=== PATIENT | female | born 1945 | race Hispanic/Latino ===

== ENCOUNTER 2022-03-08 05:55 | Observation (INO) | payer MEDICARE ==
[2022-03-02 14:27] LABS: BASOPHILS % (AUTO) 0.9 % (0.0-5.0); EOSINOPHILS % (AUTO) 4.9 % (0.0-8.0); HEMATOCRIT 31.1 % (36-48); LYMPHOCYTES % (AUTO) 21.7 % (21.0-51.0); MEAN CORPUSCULAR HEMOGLOBIN 30.2 pg (27.0-33.0); MEAN CORPUSCULAR HGB CONC 30.5 g/dL (32.0-36.0); MEAN CORPUSCULAR VOLUME 98.7 fL (79-99); MONOCYTES % (AUTO) 7.1 % (3.0-13.0); PLATELET COUNT (AUTO) 307 K/uL (130-400); RED BLOOD CELL COUNT(AUTO) 3.15 MIL/uL (4.00-5.50); RED CELL DISTRIBUTION WIDTH 13.9 % (11.0-15.5); WHITE BLOOD COUNT (AUTO) 5.7 K/uL (4.8-10.8)
[2022-03-02 14:40] LABS: CREATININE 0.7 mg/dL (0.5-1.5); POTASSIUM 4.5 mmol/L (3.5-5.1)
[2022-03-02 14:41] LABS: INR 0.94 (0.85-1.15); PROTHROMBIN TIME 10.3 SEC (9.6-11.6)
[2022-03-02 14:43] LABS: PARTIAL THROMBOPLASTIN TIME 28.2 SEC (26.3-35.5)
[2022-03-02 14:46] LABS: B-TYPE NATRIURETIC PEPTIDE 300 pg/mL (0-100)
[2022-03-06 16:48] VITALS: BP 138/74
[~2022-03-08] VITALS: Ht 154.9 cm; Wt 61.7 kg
[2022-03-08] VITALS (13 sets, daily range): BP systolic 149–178; BP diastolic 66–101
[~2022-03-08 05:55] MED LIST: ASPI-556 PO; ATOR40TA71 PO; CALCIUM PO; CARB15DR OP; CHOL200026 PO; CLOP75TA14 PO; CYCL30DR OP; HYDR-4068 PO; IBAN150T21 PO; LATA7.5D OP; METO-408 PO; MIRA50TA PO
[2022-03-08] MEDS ORDERED: 0.9%NACL 1000ML 1,000 ML IV ONE (06:24)
[2022-03-08] MEDS ORDERED: HEPARIN 10,000 UNIT/10ML (1,000 UNIT/ML) VIAL ONE (07:16)
[2022-03-08] MEDS ORDERED: NITROGLYCERIN 50MG VIAL ONE (07:16)
[2022-03-08] MEDS ORDERED: FENTANYL CITRATE PF 50 MCG/1 ML 2ML VIAL ONE (07:17)
[2022-03-08] MEDS ORDERED: LIDOCAINE HCL 400MG/20ML VIAL ONE (07:17)
[2022-03-08] MEDS ORDERED: MIDAZOLAM HCL 1 MG/ML 2ML VIAL ONE (07:17)
[2022-03-08] MEDS ORDERED: IODIXANOL 320 MG/ML 100 ML VIAL ONE (07:23)
[2022-03-08] MEDS ORDERED: 0.9%NACL 1000ML 1,000 ML IV SCH ×2 (08:00→09:30)
[2022-03-08] MEDS ORDERED: IOHEXOL-350 50ML VIAL IV ONE ×2 (08:05→08:15)
[2022-03-08] MEDS ORDERED: BIVALIRUDIN 250 MG/VIAL IV ONE (08:21)
[2022-03-08] MEDS ORDERED: IOHEXOL-350 75 ML VIAL IV ONE (08:29)
[2022-03-08] MEDS ORDERED: CLOPIDOGREL 300MG TAB ONE (09:01)
[2022-03-08] MEDS ORDERED: LABETALOL 20MG SYG IV ONE (09:05)
[2022-03-08] MEDS ORDERED: METOPROLOL TARTRATE 1 MG/ML 5ML VIAL IV PRN (09:30)
[2022-03-08] MEDS ORDERED: GLUCAGON 1MG KIT 1 MG ML IM PRN (09:30)
[2022-03-08] MEDS ORDERED: DEXTROSE 50%-WATER 50 ML DISP.SYRIN IV PRN (09:30)
[2022-03-08] MEDS: HYDROCODONE/ACETAMINOPHEN 10/325 MG TAB PO PRN ×3 (11:18→20:29)
[2022-03-08] MEDS: INSULIN HUMULIN R 100 UNIT/ML 3ML SQ SCH ×3 (11:30→21:00)
[2022-03-09] MEDS: HYDROCODONE/ACETAMINOPHEN 10/325 MG TAB PO PRN ×5 (00:11→13:48)
[2022-03-09 04:15] LABS: HEMATOCRIT 29.8 % (36-48); MEAN CORPUSCULAR HEMOGLOBIN 30.5 pg (27.0-33.0); MEAN CORPUSCULAR HGB CONC 32.2 g/dL (32.0-36.0); MEAN CORPUSCULAR VOLUME 94.6 fL (79-99); RED BLOOD CELL COUNT(AUTO) 3.15 MIL/uL (4.00-5.50); RED CELL DISTRIBUTION WIDTH 13.9 % (11.0-15.5); WHITE BLOOD COUNT (AUTO) 6.6 K/uL (4.8-10.8)
[2022-03-09 04:27] LABS: CREATININE 0.7 mg/dL (0.5-1.5); POTASSIUM 3.6 mmol/L (3.5-5.1)
[2022-03-09 04:28] VITALS: BP 164/75
[2022-03-09] MEDS: INSULIN HUMULIN R 100 UNIT/ML 3ML SQ SCH ×2 (06:05→11:30)
[2022-03-09 08:00] VITALS: BP 160/89
[2022-03-09] MEDS ORDERED: ASPIRIN 81MG CHEW TAB PO SCH (09:00)
[2022-03-09] MEDS ORDERED: CLOPIDOGREL 75MG TAB PO SCH (09:00)
[2022-03-09 12:00] VITALS: BP 152/51
[2022-03-09 16:00] VITALS: BP 130/63
[2022-03-09] MEDS ORDERED: ATORVASTATIN 40 MG TABLET PO SCH (21:00)
[2022-03-09] MEDS ORDERED: METOPROLOL SUCCINATE 25 MG TAB.SR.24H PO SCH (21:00)
== END 2022-03-09 18:50 | disposition home or self-care (01) ==
LOC: DAH 05:55 → DAHIP 05:56 → INTOOBSV 05:56 → OBSVTOIN 05:56 → 2DH 10:10
PROVIDERS: ADMIT Internal Medicine Cardiovascular Disease; ATTEND Internal Medicine Cardiovascular Disease
DX: I25.110 Atherosclerotic heart disease of native coronary artery with unstable angina pectoris (principal); D64.9 Anemia, unspecified; E11.9 Type 2 diabetes mellitus without complications; E78.5 Hyperlipidemia, unspecified; F31.9 Bipolar disorder, unspecified; I25.118 Atherosclerotic heart disease of native coronary artery with other forms of angina pectoris; T82.855A Stenosis of coronary artery stent, initial encounter; Z86.73 Personal history of transient ischemic attack (TIA), and cerebral infarction without residual deficits; Z79.899 Other long term (current) drug therapy; Z98.890 Other specified postprocedural states; Z95.1 Presence of aortocoronary bypass graft; Y83.1 Surgical operation with implant of artificial internal device as the cause of abnormal reaction of the patient, or of later complication, without mention of misadventure at the time of the procedure
CPT/HCPCS: 80048 ×2; 83880; 85025; 85610; 85730; 36415 ×2; 93005; 36245 ×2; 75726 ×2; 93455; 93799; 82948 ×5; 71045; 85027; 76882; C1769 ×2; C1894 ×3; C1760; C1761; C1887; C1874; G0378 ×33; J3010; J3490 ×2; J7030; J2250; J1644; J0583; Q9967 ×4; A4215; A4223 ×3; A4222; A4221; A4663; A4216; A4606; C9600; 99156; 99157